=== PATIENT | female | born 1965 | race Caucasian/White ===

== ENCOUNTER 2020-03-09 12:50 | Emergency (ER) | payer OTHER, SELFPAY ==
[2020-03-09] VITALS (18 sets, daily range): BP systolic 107–143; BP diastolic 65–86; PULSE 65–92; RESP 12–29; TEMP 36.7; O2SAT 84–100
--- NOTE | 2020-03-09 12:59 | DI.RAD.S_ITS ---
PROCEDURE: XR CHEST 1V INDICATIONS: chest pain/SOB TECHNIQUE: One view of the chest was acquired. COMPARISON: None. FINDINGS: Surgical changes and devices: None. Lungs and pleura: Lungs are clear. No pleural effusions or pneumothorax. Mediastinum: Mediastinal contours appear normal. Heart size is normal. Bones and chest wall: No suspicious bony lesions. Overlying soft tissues appear unremarkable. IMPRESSION: 1. No acute cardiopulmonary disease. Dictated by: Larry Smith M.D. on 03/09/2020 at 12:40 Approved by: Larry Smith M.D. on 03/09/2020 at 12:41
--- NOTE | 2020-03-09 13:06 | ED_ITS ---
HPI - Chest Pain General Chief Complaint: Chest Pain Stated Complaint: chest pain Time Seen by Provider: 03/09/20 12:55 Source: patient Mode of arrival: Ambulatory Limitations: no limitations History of Present Illness HPI narrative: 55F nonsmoker with no significant medical history presents with a chief complaint of an episode of mid chest pain with some radiation to her back and occasional tingling of her left arm that has been present for much of the day today. She has had on and going symptoms off and on for the past few weeks and even had a stress test last week back home in [facility]. She does not know the results yet but she states she last the entire 45 minutes. She denies associated symptoms such as dizziness, weakness or lightheadedness. She has no shortness of breath, denies diaphoresis, radiation or shortness of breath. She denies any exertional change in her symptoms and states that many ways it feels like heartburn. She has no current symptoms. She does state that on occasion s he feels palpitations and what feels like a rapid heart rate but none currently MD complaint: chest pain Onset (ago): hour(s) Duration: constant Onset: during rest Pain location: substernal and left chest Severity: moderate Quality: aching Pain radiation: back Relieving factors: nothing Exacerbating factors: nothing Treatments prior to arrival chest pain: none Related Data On Oral Contraceptives: No Home Medications Medication Instructions Recorded Confirmed No Known Home Medications 03/09/20 03/09/20 Allergies Allergy/AdvReac Type Severity Reaction Status Date / Time No Known Drug Allergies Allergy Verified 03/09/20 13:01 Review of Systems Constitutional Constitutional: Denies chills, Denies fatigue, Denies fever(s), Denies frequent falls, Denies lethargy and Denies weakness Eyes Eyes: Denies change in vision, Denies eye discharge, Denies irritation and Denies loss of vision ENT Ears, Nose, Mouth, and Throat: Denies change in voice, Denies dizziness, Denies neck pain, Denies sore throat and Denies throat swelling Cardiovascular Cardiovascular: Reports chest pain, Denies irregular heart rhythm, Denies lightheadedness, Denies palpitations, Denies dyspnea, Denies dyspnea on exertion and Denies orthopnea Respiratory Respiratory: Denies cough, Denies dyspnea, Denies dyspnea on exertion and Denies wheezing Gastrointestinal Gastrointestinal: Denies abdominal pain, Denies change in bowel habits, Denies diarrhea, Denies nausea and Denies vomiting Musculoskeletal Musculoskeletal: Denies neck pain and Denies numbness Integumentary/Breasts Skin/Breast: Denies pruritus, Denies erythema, Denies rash and Denies wounds Neurologic Neurologic: Denies behavioral changes, Denies confusion, Denies dizziness, Denies frequent falls, Denies loss of vision, Denies numbness and Denies weakness Psychiatric Psychiatric: Denies anxiety, Denies behavioral changes, Denies confusion, Denies depression, Denies homicidal ideation and Denies suicidal ideation Endocrine Endocrine: Denies fatigue, Denies flushing and Denies palpitations Hematologic/Lymphatic Hematologic/Lymphatic: Denies easy bruising Allergic/Immunologic Allergic/Immunologic: Denies urticaria, Denies throat swelling and Denies wheezing Patient History Social History Smoking Status: Never smoker Smoking Status: Never smoker alcohol intake frequency: 0-2 drinks per day Substance Use Type: does not use Exam Narrative Exam Narrative: GENERAL: [55] year old patient appears stated age. Well- nourished, well-developed patient, in mild distress. HEAD: Atraumatic. Normocephalic. EYES: Pupils equal round and reactive. Extraocular motions intact. No scleral icterus. No injection or drainage. ENT: Nose without bleeding, purulent drainage. Throat without erythema, tonsillar hypertrophy or exudate. Airway patent. NECK: Trachea midline. Non tender CARDIOVASCULAR: Regular rate and rhythm without murmurs, gallops, or rubs. RESPIRATORY: Clear to auscultation. Breath sounds equal bilaterally. No wheezes, rales, or rhonchi. GASTROINTESTINAL: Abdomen soft, non-tender, nondistended. EXTREMITIES: No edema or joint tenderness. BACK: Nontender without deformity or crepitance. No flank tenderness. NEURO: AOx3. SKIN: No rash or erythema of visible areas Initial Vital Signs Initial Vital Signs: Vital Signs Temperature 98.1 F 03/09/20 12:55 Pulse Rate 88 03/09/20 12:55 Respiratory Rate 16 03/09/20 12:55 Blood Pressure 143/85 H 03/09/20 12:55 Pulse Oximetry 100 03/09/20 12:55 Scores HEART Score Heart Score history: Slightly Suspicious Heart Score EKG: Normal Heart Score Age: 45-64 years old Heart Score risk factors: No known risk factors Heart Score troponin: < or = to normal limit Heart Score Total: 1 Course Orders Ordered: ED Orders 03/09/20 12:59 XR chest 1V Stat EKG-12 Lead Stat 03/09/20 13:00 Complete Blood Count AUTO DIFF Stat Comprehensive Metabolic Panel Stat D Dimer Stat Lipase Stat Magnesium Stat Partial Thromboplastin Time Stat Prothrombin Time INR Stat TSH w/ Reflex to FT4 Stat Troponin & CK Cardiac Panel Stat 03/09/20 13:49 CT angio chest PE protocol Stat 03/09/20 15:08 Trop I [Troponin I] Stat Discontinued Medications Aspirin (Aspirin Chew) 324 mg PO NOW ONE Stop: 03/09/20 13:00 Last Admin: 03/09/20 13:09 Dose: 324 mg Documented by: CLAUS Vital Signs Vital signs: Vital Signs - 8 hr 03/09/20 12:55 03/09/20 13:05 03/09/20 13:12 Temperature 98.1 F Pulse Rate 88 84 Respiratory Rate 16 23 Blood Pressure 143/85 H 139/85 Pulse Oximetry 100 99 03/09/20 13:15 03/09/20 13:30 03/09/20 13:45 Temperature Pulse Rate 84 81 86 Respiratory Rate 18 27 H 29 H Blood Pressure 127/84 124/81 126/86 Pulse Oximetry 98 99 99 03/09/20 13:58 03/09/20 14:09 03/09/20 14:12 Temperature Pulse Rate 78 65 92 H Respiratory Rate 13 13 Blood Pressure 126/70 114/82 Pulse Oximetry 100 84 L 100 03/09/20 14:15 03/09/20 14:30 03/09/20 14:45 Temperature Pulse Rate 80 80 78 Respiratory Rate 12 13 22 Blood Pressure 114/72 112/70 113/74 Pulse Oximetry 100 100 100 03/09/20 14:49 03/09/20 15:00 03/09/20 15:15 Temperature Pulse Rate 76 78 Respiratory Rate 12 13 Blood Pressure 113/74 107/72 109/75 Pulse Oximetry 100 99 03/09/20 15:30 03/09/20 15:45 03/09/20 16:00 Temperature Pulse Rate 76 80 90 Respiratory Rate 14 13 18 Blood Pressure 109/71 108/65 113/68 Pulse Oximetry 99 98 99 MDM - Chest Pain Lab Data Result diagrams: 03/09/20 13:00 03/09/20 13:00 Labs: Lab Results 03/09/20 03/09/20 03/09/20 Range/Units 13:00 13:00 13:00 WBC 9.9 (4.5-11.0) X10^3/uL RBC 4.32 (4.0-5.2) X10^6/uL Hgb 14.0 (12.0-16.0) g/dL Hct 41.8 (36-46) % MCV 96.7 (80-100) fL MCH 32.3 (26-34) PG MCHC 33.5 (30-36) % RDW 12.7 (11.6-14.8) % Plt Count 311 (150-400) X10^3/uL Neut % (Auto) 74.1 (50-75) % Lymph % (Auto) 17.2 L (25-40) % [place] % (Auto) 7.1 (3-14) % Eos % (Auto) 0.9 L (2-4) % Baso % (Auto) 0.7 (0-2) % Neut # (Auto) 7300 H (0087-7484) /uL Lymph # (Auto) 1700 (5687-4027) /uL [place] # (Auto) 700 (0-900) /uL Eos # (Auto) 100 (0-450) /uL Baso # (Auto) 100 (0-100) /uL PT 10.5 (10.1-12.7) SECONDS INR 0.9 (0.9-1.3) APTT 25 L (26.4-36.2) SECONDS D-Dimer 204 (<230) ng/mL Sodium 136 L (137-145) mmol/L Potassium 3.7 (3.4-5.1) mmol/L Chloride 100 (98-107) mmol/L Carbon Dioxide 32 (22-32) mmol/L BUN 16 (7-17) mg/dL Creatinine 0.57 (0.52-1.04) mg/dL Estimated GFR > 60.0 (>60) mL/min BUN/Creatinine Ratio 28.1 H (6-22) Glucose 168 H (70-100) mg/dL Calcium 9.6 (8.4-10.2) mg/dL Magnesium 2.1 (1.6-2.3) mg/dL Total Bilirubin 0.4 (0.2-1.3) mg/dL AST 33 (14-36) IU/L ALT 25 (<35) IU/L Alkaline Phosphatase 81 (38-126) U/L Total Creatine Kinase 40 (30-135) U/L CK-MB (CK-2) TNP CK-MB (CK-2) Rel Index TNP Troponin I < 0.012 (0.01-0.034) ng/mL Total Protein 7.8 (6.3-8.2) g/dL Albumin 4.7 (3.5-5.0) g/dL Globulin 3.1 (1.7-4.1) g/dL Albumin/Globulin Ratio 1.5 (1.0-2.8) Lipase 110 (23-300) U/L TSH (0.47-4.68) uIU/mL 03/09/20 03/09/20 03/09/20 Range/Units 13:00 13:00 15:08 WBC (4.5-11.0) X10^3/uL RBC (4.0-5.2) X10^6/uL Hgb (12.0-16.0) g/dL Hct (36-46) % MCV (80-100) fL MCH (26-34) PG MCHC (30-36) % RDW (11.6-14.8) % Plt Count (150-400) X10^3/uL Neut % (Auto) (50-75) % Lymph % (Auto) (25-40) % [place] % (Auto) (3-14) % Eos % (Auto) (2-4) % Baso % (Auto) (0-2) % Neut # (Auto) (4814-9536) /uL Lymph # (Auto) (0145-4117) /uL [place] # (Auto) (0-900) /uL Eos # (Auto) (0-450) /uL Baso # (Auto) (0-100) /uL PT (10.1-12.7) SECONDS INR (0.9-1.3) APTT (26.4-36.2) SECONDS D-Dimer Cancelled (<230) ng/mL Sodium (137-145) mmol/L Potassium (3.4-5.1) mmol/L Chloride (98-107) mmol/L Carbon Dioxide (22-32) mmol/L BUN (7-17) mg/dL Creatinine (0.52-1.04) mg/dL Estimated GFR (>60) mL/min BUN/Creatinine Ratio (6-22) Glucose (70-100) mg/dL Calcium (8.4-10.2) mg/dL Magnesium (1.6-2.3) mg/dL Total Bilirubin (0.2-1.3) mg/dL AST (14-36) IU/L ALT (<35) IU/L Alkaline Phosphatase (38-126) U/L Total Creatine Kinase (30-135) U/L CK-MB (CK-2) CK-MB (CK-2) Rel Index Troponin I < 0.012 (0.01-0.034) ng/mL Total Protein (6.3-8.2) g/dL Albumin (3.5-5.0) g/dL Globulin (1.7-4.1) g/dL Albumin/Globulin Ratio (1.0-2.8) Lipase (23-300) U/L TSH 0.92 (0.47-4.68) uIU/mL Imaging Data Chest x-ray: Radiologist's Impression: Pamela Roldan 55 F 1965 [place] [address] XRay Report Signed Patient: Pamela Roldan CMR#: [id number] : 1965Acct:[id number] Age/Sex: 55 / FDate of Service: 03/09/20 Loc: ED Accession Number: [id number] Procedure: XR chest 1V Ordering Provider: Bashir Cosme D.O. PROCEDURE: XR CHEST 1V INDICATIONS: chest pain/SOB TECHNIQUE: One view of the chest was acquired. COMPARISON: None. FINDINGS: Surgical changes and devices: None. Lungs and pleura: Lungs are clear. No pleural effusions or pneumothorax. Mediastinum: Mediastinal contours appear normal. Heart size is normal. Bones and chest wall: No suspicious bony lesions. Overlying soft tissues appear unremarkable. IMPRESSION: 1. No acute cardiopulmonary disease. Dictated by: Larry Smith M.D. on 03/09/2020 at 12:40 Approved by: Larry Smith M.D. on 03/09/2020 at 12:41 CT scan - chest: Radiologist's Impression: [address] [address] [address] Scan Report Signed Patient: Pamela Roldan CMR#: [id number] : 1965Acct:[id number] Age/Sex: 55 / FDate of Service: 03/09/20 Loc: ED Accession Number: [id number] Procedure: CT angio chest PE protocol Ordering Provider: Bashir Cosme D.O. PROCEDURE: CT ANGIO CHEST PE PROTOCOL INDICATIONS: chest pain, radiation to back, frequent travel TECHNIQUE: After the administration of intravenous contrast, 2 mm thick sections acquired from the pulmonary apices to the posterior costophrenic angles. 3-dimensional maximum intensity projection (MIP) coronal and sagittal reformats were then acquired through the thorax. For radiation dose reduction, the following was used: automated exposure control, adjustment of mA and/or kV according to patient size. COMPARISON: None. FINDINGS: Image quality: Excellent. Pulmonary arteries: Pulmonary arteries are normal in size, and demonstrate no intraluminal filling defects to suggest central pulmonary embolism. Lungs and pleura: There is mild dependent atelectasis. No focal consolidation. No pleural effusions or pneumothorax. Central and peripheral airways are patent. Mediastinum: Heart size is normal. There is a minimal pericardial effusion inferiorly.. No mediastinal or hilar adenopathy. Thoracic aorta is normal in caliber and en. hancement. Esophagus is normal in caliber, without hiatal hernia. Bones and chest wall: There are bilateral breast implants which appear intact No suspicious bony lesions. Ribs and thoracic spine appear intact throughout. No axillary or supraclavicular adenopathy. Abdomen: Visualized upper abdomen demonstrates a small cyst within the visualized left hepatic lobe. IMPRESSION: 1. No evidence of pulmonary embolism. Dictated by: Larry Smith M.D. on 03/09/2020 at 13:50 Approved by: Larry Smith M.D. on 03/09/2020 at 13:54 Discharge Plan Departure Patient Disposition: Home Clinical Impression: Atypical chest pain Discharge Date/Time: 03/09/20 16:17 Instructions: DI for Atypical Chest Pain Activity Restrictions/Additional Instructions: *You have been diagnosed with [atypical chest pain. Today's exam, EKGs, labs and imaging are all very reassuring, and there is no evidence heart attack, blood clot or other life-threatening cause of your chest pain and palpitations] *What to do: *Take medications as directed: Please add aspirin 81 mg to your daily regimen *Follow up with your primary care provider in 2-3 days, call for an appointment. Let them know you were seen in the Emergency Department and that we ask that you be seen in follow up *Return to ER if you should have any new, worsening or concerning symptoms Prescriptions: No Action No Known Home Medications RF: 0
[2020-03-09] MEDS: ASPIRIN 81 MG CHEW TAB 324 MG PO (13:09)
[2020-03-09 13:10] LABS: Add Manual Diff / Slide Review NO; Basophils Absolute Auto 100 /uL (0-100); Basophils Percent Auto 0.7 % (0-2); Eosinophils Absolute Auto 100 /uL (0-450); Eosinophils Percent Auto 0.9 % (2-4); Hematocrit 41.8 % (36-46); Lymphocytes Absolute Auto 1700 /uL (1100-4500); Lymphocytes Percent Auto 17.2 % (25-40); Mean Corpuscular HGB Conc 33.5 % (30-36); Mean Corpuscular Hemoglobin 32.3 PG (26-34); Mean Corpuscular Volume 96.7 fL (80-100); Monocytes Absolute Auto 700 /uL (0-900); Monocytes Percent Auto 7.1 % (3-14); Neutrophils Absolute Auto 7300 /uL (1500-7000); Neutrophils Percent Auto 74.1 % (50-75); Platelet Count 311 X10^3/uL (150-400); Red Blood Cell Count 4.32 X10^6/uL (4.0-5.2); Red Cell Distribution Width 12.7 % (11.6-14.8); White Blood Cell Count 9.9 X10^3/uL (4.5-11.0)
--- NOTE | 2020-03-09 13:20 | PC.NURSE ---
Patient came into the ED with complaints of chest tightness and pressure. Her vital signs are stable and her EKG show no signs of ischemia.
[2020-03-09 13:21] LABS: INR 0.9 (0.9-1.3); Prothrombin Time 10.5 SECONDS (10.1-12.7)
[2020-03-09 13:24] LABS: D Dimer 204 ng/mL (<230); PTT Partial Thromboplastin Tim 25 SECONDS (26.4-36.2)
[2020-03-09 13:25] LABS: Alanine Aminotransferase 25 IU/L (<35); Albumin 4.7 g/dL (3.5-5.0); Albumin Globulin Ratio 1.5 (1.0-2.8); Alkaline Phosphatase 81 U/L (38-126); Aspartate Aminotransferase 33 IU/L (14-36); BUN Creatinine Ratio 28.1 (6-22); Bilirubin Total 0.4 mg/dL (0.2-1.3); Blood Urea Nitrogen 16 mg/dL (7-17); Calcium 9.6 mg/dL (8.4-10.2); Carbon Dioxide 32 mmol/L (22-32); Chloride 100 mmol/L (98-107); Creatine Kinase 40 U/L (30-135); Estimated Glomerular Filt Rate > 60.0 mL/min (>60); Globulin 3.1 g/dL (1.7-4.1); Glucose 168 mg/dL (70-100); HEMOLYSIS 17 (0-50); Lipase 110 U/L (23-300); Magnesium 2.1 mg/dL (1.6-2.3); Potassium 3.7 mmol/L (3.4-5.1); Sodium 136 mmol/L (137-145); Total Protein 7.8 g/dL (6.3-8.2)
[2020-03-09 13:36] LABS: Troponin I < 0.012 ng/mL (0.01-0.034)
--- NOTE | 2020-03-09 13:49 | DI.CT.S_ITS ---
PROCEDURE: CT ANGIO CHEST PE PROTOCOL INDICATIONS: chest pain, radiation to back, frequent travel TECHNIQUE: After the administration of intravenous contrast, 2 mm thick sections acquired from the pulmonary apices to the posterior costophrenic angles. 3-dimensional maximum intensity projection (MIP) coronal and sagittal reformats were then acquired through the thorax. For radiation dose reduction, the following was used: automated exposure control, adjustment of mA and/or kV according to patient size. COMPARISON: None. FINDINGS: Image quality: Excellent. Pulmonary arteries: Pulmonary arteries are normal in size, and demonstrate no intraluminal filling defects to suggest central pulmonary embolism. Lungs and pleura: There is mild dependent atelectasis. No focal consolidation. No pleural effusions or pneumothorax. Central and peripheral airways are patent. Mediastinum: Heart size is normal. There is a minimal pericardial effusion inferiorly.. No mediastinal or hilar adenopathy. Thoracic aorta is normal in caliber and en. hancement. Esophagus is normal in caliber, without hiatal hernia. Bones and chest wall: There are bilateral breast implants which appear intact No suspicious bony lesions. Ribs and thoracic spine appear intact throughout. No axillary or supraclavicular adenopathy. Abdomen: Visualized upper abdomen demonstrates a small cyst within the visualized left hepatic lobe. IMPRESSION: 1. No evidence of pulmonary embolism. Dictated by: Larry Smith M.D. on 03/09/2020 at 13:50 Approved by: Larry Smith M.D. on 03/09/2020 at 13:54
[2020-03-09 14:02] LABS: TSH w/ Reflex to FT4 0.92 uIU/mL (0.47-4.68)
[2020-03-09 15:37] LABS: Troponin I < 0.012 ng/mL (0.01-0.034)
== END 2020-03-09 16:17 | disposition home or self-care (01) ==
PROVIDERS: Emergency Provider Emergency Medicine
DX: R07.89 Other chest pain (principal); R06.02 Shortness of breath
CPT/HCPCS: 36415; 71045; 71275; 80053; 82550; 83690; 83735; 84443; 84484; 85025; 85379; 85610; 85730; 93005; 99284